=== PATIENT | female | born 1990 | race Caucasian/White ===

== ENCOUNTER 2016-09-13 10:29 | Emergency (ER) | payer OTHER ==
[2016-09-13] MEDS ORDERED: PHENERGAN IV ONE (13:09)
[2016-09-13] MEDS ORDERED: SODIUM CHLORIDE 0.9% INJ ONE (13:09)
[2016-09-13] MEDS ORDERED: NS 1,000 ML IV ONE (13:09)
--- NOTE | 2016-09-13 13:26 | PROVIDER DOCUMENTATION ---
HPI-General Adult - General Source: patient - History of Present Illness -Gen Adult Nature of Presenting Problems: Pt is 25 y/o F presents to the ED with N, V and MATIAS. Pt states symptoms started last night. PT states she is 18 weeks . Pt denies vaginal bleeding. Pt denies SOB and CP. Pt states LMP was May 10. Pt denies F and D. Location of Pain/Injury: reports: none Pain Radiation: reports: no radiation Quality of Pain: reports: none Onset/Duration: reports: last night Timing: reports: intermittent Context/Activities at Onset: reports: light activity Modifying Factors: improves with: nothing Associated Symptoms: reports: headaches, nausea, vomiting, weakness. denies: anxiety, arm pain, back/neck pain, chest pain, constipation, cough, diaphoresis , diarrhea, dizziness, EENT symptoms, fatigue, fever/chills, genitourinary problems, heartburn, joint pain, loss of appetite, malaise, muscle aches, sinus congestion/drainage, rash, seizure, shortness of breath, sensory/motor loss, pain with inspiration, swelling/mass in abdomen, syncope, trouble walking Similar Symptoms Previously?: Yes Recently seen or treated by another doctor?: No <Justa Braden - Last Filed: 09/13/16 14:44> <Ethan Brown - Last Filed: 09/13/16 15:42> - General Chief Complaint: Nausea/Vomiting Stated Complaint: 18 WEEKS PREG/VOMITING Time Seen by Provider: 09/13/16 12:47 Allergies/Adverse Reactions: Patient Allergies Allergy/AdvReac Type Severity Reaction Status Date / Time ibuprofen Allergy ANAPHYLAXIS Verified 07/06/16 16:06 Home Medications: Home Medication List Medication Instructions Recorded Confirmed Last Taken Type Vit/Fe Fumarate/FA 1 tab PO DAILY 08/13/16 08/13/16 Unknown History [ 1-1 Tablet] Review of Systems - Adult - REVIEW OF SYSTEMS - ADULT Constitutional: denies: chills, fever Eyes: denies: blurred vision, double vision Ears, Nose, Mouth & Throat: denies: ear pain, nose pain, throat pain Cardiovascular: denies: chest pain, heart murmur, irregular heart rate Respiratory: denies: cough, shortness of breath, wheezing Gastrointestinal: reports: nausea, vomiting. denies: abdominal pain, diarrhea Genitourinary: denies: dysuria, hematuria Musculoskeletal: denies: bone pain, joint pain, neck pain Integumentary: denies: hives, itching Neurological: reports: headache/migraines (MATIAS). denies: dizziness/vertigo Psychiatric: denies: anxiety, depression Endocrine: reports: no symptoms reported Hematologic/Lymphatic: reports: no symptoms reported Allergic/Immunologic: reports: no symptoms reported All Other Systems: Reviewed and Negative <Justa Braden - Last Filed: 09/13/16 14:44> Past History - Adult - PAST MEDICAL HISTORY-ADULT Review of Records: reports: Nursing Assessment Review, Medications Reviewed, Social history reviewed & non-contributory. Major Childhood Illnesses: reports: denies history Cardiovascular: reports: denies history Respiratory: reports: asthma Gastrointestinal: reports: denies history Obstetrical/Gynecological: reports: - spont/elective (spont - 2008) Genitourinary: reports: denies history Musculoskeletal: reports: denies history Neurological: reports: denies history Psychiatric: reports: anxiety Endocrine/Immune: reports: denies history Other Conditions: reports: denies history - PRIOR SURGERIES/PROCEDURES Surgical/Procedure History: reports: tonsillectomy, orthopedic (extremity), other (cervical punch bx on Sunday in [place]) - IMMUNIZATION STATUS Childhood Immunizations: See Nurse Assessment Flu Vaccine: See Nurse Assessment - FAMILY HISTORY Family History: reviewed, not pertinent - SOCIAL HISTORY Smoking: denies Substance Use: denies Living Situation: family <Justa Braden - Last Filed: 09/13/16 14:44> Physical Exam-General - PHYSICAL EXAM-ADULT Initial Vital Signs Reviewed: Yes - CONSTITUTIONAL General Appearance: appears well, alert, no apparent distress - EYES Eyes: PERRL/EOMI, pink conjunctivae, fundi clear, no AV nicking - HEAD, EARS, NOSE, MOUTH & THROAT HENMT: normocephalic/atraumatic, moist mucous membranes, normal ENT inspection, TMs normal, pharynx normal - NECK Neck: non-tender, full range of motion, supple, normal inspection - RESPIRATORY Respiratory: chest non-tender, lungs clear, normal breath sounds, no pleuratic chest pain, no respiratory distress, no accessory muscle use - CARDIOVASCULAR Cardiovascular: normal peripheral pulses, regular rate, rhythm, no edema, no gallop, no JVD, no murmur - GASTROINTESTINAL (ABDOMEN) Abdominal Exam: normal bowel sounds, non tender, soft, no organomegaly, no pulsatile mass, other (fundus palpable under umbilicus) - LYMPHATIC Lymphatic: no adenopathy - MUSCULOSKELETAL Back Exam: normal inspection, no CVA tenderness, no vertebral tenderness Extremity: normal range of motion, non-tender, normal gait, normal inspection, no pedal edema, no calf tenderness, normal capillary refill - SKIN Integumentary: normal color, normal turgor, warm/dry - NEUROLOGIC Neurologic: grossly normal - PSYCHIATRIC Psych/Mental Status: normal mood/affect, oriented x 3 <Justa Braden - Last Filed: 09/13/16 14:44> Progress - PLAN OF CARE/RESULTS Progress/Plan/Lab Results: Orders Category Date Time Status BASIC METABOLIC PANEL [CHEM] Stat Lab 09/13/16 13:09 Ordered 0.9% Sodium Chloride Inj [Ns] 1,000 ml Med 09/13/16 13:09 Active IV 999 mls/hr Promethazine [Phenergan] Med 09/13/16 13:09 Discontinued 25 mg IV NOW ONE Sodium Chloride 0.9% Med 09/13/16 13:09 Discontinued 10 ml INJ NOW ONE Vital Signs - 24 hr 09/13/16 10:39 Temperature 98 F Pulse Rate 90 Respiratory 18 Rate Blood Pressure 144/74 O2 Sat by Pulse 100 Oximetry Laboratory Tests 09/13/16 13:30 Sodium 135 L Potassium 3.8 Chloride 103 Carbon Dioxide 23 L Anion Gap 10 BUN 8 Creatinine 0.5 Estimated GFR/1.73 m2 > 60 BUN/Creatinine Ratio 16 Glucose 82 Calculated Osmolality 268 Calcium 9.0 <Justa Braden - Last Filed: 09/13/16 14:44> - REASSESSMENT Reassessment #1 Time Reassessed: 15:38 (feels better, is pipe po, feels ready to go home) <Ethan Brown - Last Filed: 09/13/16 15:42> Departure <Justa Braden - Last Filed: 09/13/16 14:44> - Departure Time of Disposition Order: 15:39 Certified Medical Emergency: Emergent <Ethan Brown - Last Filed: 09/13/16 15:42> - Departure DIAGNOSIS: Nausea/vomiting in Disposition: HOME 01 Condition: Good Additional Instructions: ED Follow Up Instructions: You have been treated by a care provider in the Emergency Department. These instructions are being provided to you so you can have an understanding of how to care for yourself upon discharge. Upon discharge from the Emergency Department, you are responsible for making arrangements for follow-up care by a physician of your choice. Take all prescribed medications as directed. Return to the Emergency Department immediately for any new or worsening symptoms. You may call the Physician Referral phone number at [phone] to obtain a list of Physicians who are taking new patients. Referrals: Hoa Canchola MD [Primary Care Provider] - Instructions: Nausea and Vomiting Attestation - Scribe Verification/Attestation Scribe:: Justa Braden Acting as Scribe for:: Ethan Brown Scribe documention review:: This chart was documented by a scribe and accurately reflects the service the provider performed and the decisions made by the provider. <Justa Braden - Last Filed: 09/13/16 14:44> Physician Attestation - Physician Attestation I, the provider, attest to the following statement:: Ethan Brown Physician documentation Attestation:: This documentation recorded by the scribe accurately reflects the service I personally performed and the decisions made by me. <Ethan Brown - Last Filed: 09/13/16 15:42>
[2016-09-13 14:05] LABS: AGAP 10; BUN 8 mg/dL (8-22); CHLORIDE 103 mmol/L (98-107); COSMO 268; POTASSIUM 3.8 mmol/L (3.5-5.1); SODIUM 135 mmol/L (136-145); TCO2 23 mmol/L (25-35)
[2016-09-13 16:31] VITALS: BP 129/69
== END 2016-09-13 16:30 | disposition home or self-care (01) ==
LOC: P.ED 10:29
DX: O21.0 Mild hyperemesis gravidarum (principal); Z3A.18 18 weeks gestation of pregnancy; O26.892 Other specified pregnancy related conditions, second trimester; R51 Headache
CPT/HCPCS: 36415; 80048; J2550; J7030

== ENCOUNTER 2019-04-07 13:47 | Day surgery (SDC) ==
--- NOTE | 2019-04-07 14:42 | Diag Imaging Result Doc PS360 ---
EXAM: US TRANSVAGINAL OB HISTORY: unknown location TECHNIQUE: Transvaginal pelvic ultrasound COMPARISON: 04/02/2019 FINDINGS: No intrauterine gestational sac identified. Normal left ovary. There is a small complex area in the right ovary which appears to be gestational sac and pole with a heart rate of 141 bpm. no free fluid. IMPRESSION: Findings consistent with a right ovarian ectopic . Dr. Cunningham will be called these results by the absorption plant operator helper. Electronically signed by Bhavesh Byrd 04/07/2019 2:40 PM
[2019-04-07] MEDS ORDERED: VERSED ONE (15:38)
[2019-04-07] MEDS ORDERED: FENTANYL ONE (15:39)
[2019-04-07] MEDS ORDERED: DIPRIVAN 1% ONE (15:40)
[2019-04-07] MEDS ORDERED: XYLOCAINE-MPF 2% ONE (15:49)
[2019-04-07] MEDS ORDERED: DECADRON ONE (15:49)
[2019-04-07] MEDS ORDERED: QUELICIN (DOSE) ONE (15:49)
[2019-04-07] MEDS ORDERED: ZOFRAN ONE (15:49)
[2019-04-07] MEDS ORDERED: SENSORCAINE 0.25%/EPI 1:200,000 ONE (15:54)
[2019-04-07] MEDS ORDERED: LR 1,000 ML ONE (15:54)
[2019-04-07 17:58] LABS: BASO# 0.03 X1000 (0.0-0.2); BASO% 0.3 % (0.0-0.8); EOS# 0.22 X1000 (0.0-0.7); EOS% 2.3 % (0.0-10.0); HEMATOCRIT 39.3 % (37.0-47.0); HEMOGLOBIN 13.3 g/dL (12.0-16.0); LYMPH# 1.65 X1000 (1.2-3.4); MCH 29.6 PG (27-31); MCHC 33.8 g/dL (33-37); MCV 87.3 FL (81-99); MONO# 0.59 X1000 (0.11-0.59); MONO% 6.1 % (1.7-9.3); MPV 10.6 FL (7.4-10.4); NEUT# 7.19 X1000 (1.4-6.5); NEUT% 74.3 % (42.2-75.2); PLT 250 X1000 (130-400); RDW 12.2 % (11.5-14.5); WBC 9.68 X1000 (4.8-10.8)
[2019-04-07] MEDS ORDERED: ROBINUL ONE (18:17)
[2019-04-07] MEDS ORDERED: NEOSTIGMINE ONE (18:17)
[2019-04-07] MEDS ORDERED: OFIRMEV 1000 MG/ISOTONIC SOLN 1,000 MG/100 ML BOTTLE ONE (18:21)
[2019-04-07] MEDS ORDERED: NORCO-5 PO PRN (18:35)
[2019-04-07] MEDS ORDERED: MYLICON PO PRN (18:35)
[2019-04-07] MEDS ORDERED: ZOFRAN ODT PO PRN (18:35)
[2019-04-07] MEDS: DILAUDID ONE ×4 (18:38→18:53)
[2019-04-07] MEDS ORDERED: VALIUM PO PRN (18:43)
[2019-04-07] MEDS ORDERED: PHENERGAN ONE (19:14)
--- NOTE | 2019-04-07 19:35 | HISTORY AND PHYSICAL ---
HISTORY OF PRESENT ILLNESS: A 28-year-old G3, P1-0-1-1, at 6 weeks and 1 day by last menstrual period, with of unknown location, presented to Outpatient Radiology for a repeat transvaginal ultrasound. The patient initially went to the ER on 04/02/2019 with complaint of right lower quadrant pain and a positive test. At that time, transvaginal ultrasound showed no visible gestation. Uterus and ovaries were both normal. No mass or free fluid. Uterus measured 9.1 x 5.6 x 4.1 with endometrial stripe of 9 mm. Repeat beta HCG on 04/05/2019 showed a rise from 3075 to 4732, which is greater than a 50% increase in 48 hours. At that time, patient had no abdominal pain, and plan was to repeat transvaginal ultrasound on Sunday. Repeat transvaginal ultrasound on 04/07/2019 showed no intrauterine gestational sac identified and a normal left ovary. There is a small complex area in the right ovary which appears to be a gestational sac and pole, with a heart rate of 141 beats per minute. No free fluid in the abdomen. She denies any abdominal pain currently. She denies any abdominal bleeding. Ultrasound findings were discussed with the patient. Strongly suspicious for right ectopic , and decision was made to take patient to the OR for diagnostic laparoscopy and possible unilateral salpingectomy/oophorectomy. REVIEW OF SYSTEMS: Negative. PAST MEDICAL HISTORY: Denies. SURGICAL HISTORY: History of a LEEP. FAMILY HISTORY: Mother with hypertension and diabetes. SOCIAL HISTORY: She quit vaping last week when she found out she was . She denies any alcohol or drug use. 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 Her last menstrual period was on 02/22/2019. Her last Pap smear was in 2018 and was normal. Menarche was at age 11. OBSTETRIC HISTORY: G3, P-1-0-1-1. G1 was a spontaneous at 6 weeks and no D and C (2008). G2 was a 40 week spontaneous vaginal delivery, female, 6 pounds 14 ounces, no complications (02/12/2017. VITAL SIGNS: Temp: 98.9 BP: 145/79 HR: 73 RR: 16 O2 sat: 100% LABORATORY DATA: Blood type O positive. Gonorrhea and chlamydia negative. Beta HCG on 04/02/2019 was 3075, and on 04/04/2019 was 4732. Beta HCG today pending. PHYSICAL EXAMINATION: GENERAL: Alert, no acute distress, tearful. HEENT: Normocephalic, atraumatic. HEART: Regular rate and rhythm. LUNGS: No respiratory distress. ABDOMEN: Soft, nontender, and nondistended. No rebound or guarding. EXTREMITIES: No clubbing, cyanosis, or edema. ASSESSMENT AND PLAN: A 28-year-old G3, P1-0-1-1, at 6 weeks 2 day by last menstrual period, with ultrasound findings consistent with a right ectopic . 1. HD stable, afebrile 2. Transvaginal ultrasound today shows a gestational sac in the right adnexa with a heart rate of 141 beats per minute. 3. Findings were discussed with patient and strong suspicion for right ectopic , given ultrasound findings. I discussed plan of care with patient and will proceed to the operating room for a diagnostic laparoscopy with possible unilateral salpingectomy and possible unilateral oophorectomy, and all other indicated procedures. 4. Risks, benefits, and alternatives were discussed with the patient. Risks of surgery include bleeding, infection, damage to surrounding pelvic organs, like bowel, bladder, and ureter, risk of infection, even . 5. We will plan to admit patient for 23 hour observation. 6. CBC, repeat beta hCG pending [facility]
[2019-04-07] MEDS: MORPHINE IV PRN ×2 (20:10→23:07)
[2019-04-07] MEDS ORDERED: PERIDEX MT SCH (21:00)
[2019-04-08] MEDS: NORCO-10 PO PRN ×2 (02:11→07:38)
--- NOTE | 2019-04-08 04:51 | OPERATIVE NOTE ---
PROCEDURE DATE: 04/07/2019 PREOPERATIVE DIAGNOSIS: Right ectopic visualized on transvaginal ultrasound. POSTOPERATIVE DIAGNOSIS: Right fallopian tube ectopic PROCEDURE PERFORMED: 1. Diagnostic laparoscopy. 2. Right salpingectomy. SURGEON: Shonda Cunningham DO. ASSSISTANT: Gerard Anderson DO ANESTHESIA: General. ESTIMATED BLOOD LOSS: 5 mL. IV FLUIDS: 1500 mL. URINE OUTPUT: 250 mL. FINDINGS: Right fallopian tube ectopic . Otherwise normal-appearing uterus, right ovary, left ovary and left tube. SPECIMEN: Right fallopian tube. COMPLICATIONS: None. INDICATIONS AND CONSENT: The patient is a 28-year-old G3- P1-011 at approximately 6 weeks and 2 days with an LMP, with a right ectopic visualized on ultrasound with heart tones in the adnexa. Decision was made to proceed to the OR for a diagnostic laparoscopy and possible unilateral salpingectomy, possible unilateral oophorectomy. The risks, benefits and alternatives were discussed with the patient. Risks include, but are not limited to, bleeding, infection, damage to surrounding abdominal pelvic organs, possible need for blood transfusion, and even . DESCRIPTION OF PROCEDURE: The patient was taken to the OR where general anesthesia was found to be adequate. She was then prepped and draped in the normal sterile fashion in the dorsal lithotomy position with feet in Yellofin stirrups. A Paige catheter was placed and a sponge stick was placed in the vagina. Attention was then turned to the abdominal portion of the exam. A 5 mm infraumbilical skin incision was made with a scalpel, and a Veress needle was placed through the incisions into the abdomen. Intra-abdominal pressure upon entry was 3 mmHg, and entry was also confirmed with the saline drop test. A 5 mm trocar was then placed through the incision using an Optiview trocar. The pelvis was examined, and a right fallopian tube ectopic was noted. There was a minimal amount of blood in the abdomen. Next a left lower quadrant 5 mm skin incision was made, and a 5 mm trocar was placed under direct visualization. A 10 mm right lower quadrant incision was then made and a 10 mm trocar was placed at incision under direct visualization. The right fallopian tube was grasped with a grasper and excised using the LigaSure device. An endobag was then placed through the 10 mm port, and the right fallopian tube placed inside the bag, this was then removed from the abdomen and sent to pathology. Hemostasis was noted at the right fallopian tube site. The abdomen was then irrigated. Next a George Perez device was used to close the fascia on the 10 mm port using 2-0 Vicryl. The abdomen was then thoroughly desufflated and the trocars removed. The skin incision was closed with 4-0 Monocryl with Dermabond atop. Paige and sponge stick were removed from the vagina. The patient tolerated the procedure well. All sponge, lap and needle counts were correct x2. She was taken to the recovery room in stable condition. [facility]
[2019-04-08 06:57] LABS: BASO# 0.03 X1000 (0.0-0.2); BASO% 0.3 % (0.0-0.8); EOS# 0.23 X1000 (0.0-0.7); EOS% 2.5 % (0.0-10.0); HEMOGLOBIN 11.9 g/dL (12.0-16.0); IMM GRAN# 0.02 X1000 (0.0-0.04); IMM GRAN% 0.2 % (0.0-0.5); LYMPH# 2.08 X1000 (1.2-3.4); LYMPH% 22.5 % (20.5-51.1); MCH 29.7 PG (27-31); MCHC 33.1 g/dL (33-37); MCV 89.8 FL (81-99); MONO# 0.66 X1000 (0.11-0.59); MONO% 7.1 % (1.7-9.3); MPV 10.8 FL (7.4-10.4); NEUT# 6.24 X1000 (1.4-6.5); NEUT% 67.4 % (42.2-75.2); PLT 217 X1000 (130-400); RBC 4.01 XMIL (4.2-5.4); RDW 12.5 % (11.5-14.5); WBC 9.26 X1000 (4.8-10.8)
[2019-04-08 07:32] VITALS: BP 101/43
[2019-04-08] MEDS ORDERED: PRECARE PO SCH (09:00)
[2019-04-08] MEDS ORDERED: BENADRYL PO ONE (09:01)
--- NOTE | 2019-04-08 09:06 | OB/GYN PROGRESS NOTE ---
Progress Note MEASUREMENT SUPERINTENDENT - . MEASUREMENT SUPERINTENDENT Progress Note: Vital Signs - 24 hr 04/07/19 16:42 04/07/19 18:33 04/07/19 18:43 Temperature 98.9 F 97.2 F L Pulse Rate 73 93 H 78 Respiratory Rate 17 20 16 Blood Pressure 145/79 145/79 Blood Pressure [Left Arm] 129/83 129/77 O2 Sat by Pulse Oximetry 100 99 97 04/07/19 18:53 04/07/19 19:03 04/07/19 19:13 Temperature Pulse Rate 66 61 60 Respiratory Rate 18 14 17 Blood Pressure Blood Pressure [Left Arm] 124/79 124/79 127/85 O2 Sat by Pulse Oximetry 99 99 96 04/07/19 19:21 04/07/19 19:50 04/07/19 19:55 Temperature 98.3 F Pulse Rate 58 L 56 L 56 L Respiratory Rate 14 16 Blood Pressure 120/72 120/72 Blood Pressure [Left Arm] 117/78 O2 Sat by Pulse Oximetry 99 100 100 04/07/19 20:00 04/07/19 20:15 04/07/19 20:30 Temperature Pulse Rate 61 82 75 Respiratory Rate Blood Pressure 117/62 129/72 116/69 Blood Pressure [Left Arm] O2 Sat by Pulse Oximetry 04/07/19 20:45 04/07/19 21:00 04/07/19 21:30 Temperature Pulse Rate 66 58 L 78 Respiratory Rate Blood Pressure 109/54 109/58 123/70 Blood Pressure [Left Arm] O2 Sat by Pulse Oximetry 04/07/19 22:25 04/07/19 23:00 04/08/19 00:00 Temperature Pulse Rate 67 54 L Respiratory Rate Blood Pressure 109/56 98/51 Blood Pressure [Left Arm] O2 Sat by Pulse Oximetry 98 04/08/19 01:00 04/08/19 02:00 04/08/19 03:40 Temperature 98.5 F Pulse Rate 70 57 L 63 Respiratory Rate 18 Blood Pressure 102/62 101/53 100/45 Blood Pressure [Left Arm] O2 Sat by Pulse Oximetry 99 04/08/19 07:24 Temperature 98.5 F Pulse Rate 73 Respiratory Rate 16 Blood Pressure 101/43 Blood Pressure [Left Arm] O2 Sat by Pulse Oximetry 98 Laboratory Results - last 24 hr 04/07/19 04/07/19 04/07/19 17:45 17:45 17:45 WBC 9.68 RBC 4.50 Hgb 13.3 Hct 39.3 MCV 87.3 MCH 29.6 MCHC 33.8 RDW Std Deviation 12.2 Plt Count 250 MPV 10.6 H Immature Gran % (Auto) 0.0 Neut % (Auto) 74.3 Lymph % (Auto) 17.0 L [place] % (Auto) 6.1 Eos % (Auto) 2.3 Baso % (Auto) 0.3 Immature Gran # (Auto) 0.00 Neut # (Auto) 7.19 H Lymph # (Auto) 1.65 [place] # (Auto) 0.59 Eos # (Auto) 0.22 Baso # (Auto) 0.03 Ser , Semi-Qnt 7825.0 Blood Type O POSITIVE Antibody Screen NEGATIVE 04/08/19 05:55 WBC 9.26 RBC 4.01 L Hgb 11.9 L Hct 36.0 L MCV 89.8 MCH 29.7 MCHC 33.1 RDW Std Deviation 12.5 Plt Count 217 MPV 10.8 H Immature Gran % (Auto) 0.2 Neut % (Auto) 67.4 Lymph % (Auto) 22.5 [place] % (Auto) 7.1 Eos % (Auto) 2.5 Baso % (Auto) 0.3 Immature Gran # (Auto) 0.02 Neut # (Auto) 6.24 Lymph # (Auto) 2.08 [place] # (Auto) 0.66 H Eos # (Auto) 0.23 Baso # (Auto) 0.03 Ser , Semi-Qnt Blood Type Antibody Screen POD#1 s/p Dx Lap, R salpingectomy for R fallopian tube ectopic Patient seen and examined. C/o soreness this AM and nausea. She is tolerating a regular diet and denies any vomiting. Pain has been controlled with Edcouch 10 and occasional IV morphine for breakthrough. She complains of itching this AM. She is voiding without difficulty and has ambulated to the bathroom. She denies any vaginal bleeding. She is still anxious from the loss and desires medication for short term acute anxiety. She does not desire to start an anti- depressant. Assessment/Plan - Assessment/Plan Assessment: 28 y0 POD#1 s/p Dx Lap, R salpingectomy for R fallopian tube ectopic 1. HDostable, afebrile 2. Routine Post-op care 3. Encourage ambulation 4. Benadryl 25mg PO x 1 for itching 5. Will give 3 day supply of anti-anxiety medication 6. D/C home today, follow-up in 1 week 7. Discussed ways to prevent post-op constipation Physical Exam-General - PHYSICAL EXAM-ADULT Initial Vital Signs Reviewed: Yes - CONSTITUTIONAL General Appearance: appears well, alert, no apparent distress - EYES Eyes: PERRL/EOMI - HEAD, EARS, NOSE, MOUTH & THROAT HENMT: normocephalic/atraumatic - RESPIRATORY Respiratory: no respiratory distress - CARDIOVASCULAR Cardiovascular: regular rate, rhythm - GASTROINTESTINAL (ABDOMEN) Abdominal Exam: non tender, soft, other (non-distended, no rebound/guarding, small laparoscopic incisions C/D/I with dermabond hypoactive bowel sounds) - MUSCULOSKELETAL Extremity: normal range of motion, non-tender - PSYCHIATRIC Psych/Mental Status: depressed affect
== END 2019-04-08 11:02 | disposition home or self-care (01) ==
LOC: 4N 13:47 → US 13:47 → EDSTATUS 15:30 → US 04-08 11:02
PROVIDERS: ATTEND Student in an Organized Health Care Education/Training Program